=== PATIENT | female | born 1970 ===

== ENCOUNTER 2016-07-26 15:54 | Emergency (ER) | payer MEDICAID ==
[2016-07-26 16:04] VITALS: BMI 38.4
[2016-07-26 16:27] VITALS: BP 125/83; PULSE 89; RESP 20; TEMP 98.1; O2SAT 96
--- NOTE | 2016-07-26 16:27 | C.PDOC ---
History Of Present Illness 45 year old female presents to the ED with with complaints of pain to the right arm beginning just above the right elbow and radiating to the hand that began yesterday. Patient states she was cleaning all day yesterday preparing for a Father's Day celebration and denies any trauma or other complaints at this time. Time Seen by Provider: 07/26/16 16:08 Chief Complaint (Nursing): Upper Extremity Problem/Injury History Per: Patient History/Exam Limitations: no limitations Onset/Duration Of Symptoms: Hrs Current Symptoms Are (Timing): Still Present Quality: "Pain" Severity: Severe Pain Scale Rating Of: 10 Recent travel outside of the [place]: No Past Medical History Reviewed: Historical Data, Nursing Documentation, Vital Signs Vital Signs: Last Vital Signs Temp 98.1 F 07/26/16 16:12 Pulse 89 07/26/16 16:12 Resp 20 07/26/16 16:12 BP 125/83 07/26/16 16:12 Pulse Ox 96 07/26/16 16:27 Surgical History: Cholecystectomy Family History: States: Unknown Family Hx - Social History Hx Alcohol Use: No Hx Substance Use: No - Immunization History Hx Tetanus Toxoid Vaccination: No Hx Influenza Vaccination: Yes Hx Pneumococcal Vaccination: Yes Review Of Systems Constitutional: Negative for: Fever, Chills, Sweats Cardiovascular: Negative for: Chest Pain, Palpitations Respiratory: Negative for: Cough, Shortness of Breath Gastrointestinal: Negative for: Nausea, Vomiting, Abdominal Pain, Diarrhea Musculoskeletal: Positive for: Arm Pain (right arm pain beginning just above the elbow radiating to the fingers ) Physical Exam - Physical Exam Appears: Non-toxic, No Acute Distress Skin: Warm, Dry Head: Atraumatic Neck: Supple Chest: Symmetrical, No Deformity Cardiovascular: Rhythm Regular Extremity: Normal ROM, Tenderness (tenderness above elbow joint and associated warmth from elbow to fingers ), Swelling (swelling from elbow to fingers ) Neurological/Psych: Oriented x3 ED Course And Treatment O2 Sat by Pulse Oximetry: 96 Disposition Counseled Patient/Family Regarding: Diagnosis, Need For Followup, Rx Given - Disposition Disposition: HOME/ ROUTINE Disposition Time: 16:26 Condition: STABLE Prescriptions: Ibuprofen [Motrin] 600 mg PO TID #15 tab Instructions: RICE Therapy (ED) Forms: Gen Discharge Inst Lao, Work Excuse - POA Present On Arrival: None - Clinical Impression Clinical Impression: Sprain - Scribe Statement The provider has reviewed the documentation as recorded by the Scribe Fanta Stout All medical record entries made by the Areliibe were at my direction and personally dictated by me. I have reviewed the chart and agree that the record accurately reflects my personal performance of the history, physical exam, medical decision making, and the department course for this patient. I have also personally directed, reviewed, and agree with the discharge instructions and disposition.
--- NOTE | 2016-07-28 07:55 | CARD ---
APPROVED REPORT EKG Measurement Heart [id number] <Conclusion> Normal sinus rhythm Cannot rule out Anterior infarct, age undetermined Abnormal ECG
== END 2016-07-26 16:41 | disposition home or self-care (01) ==
LOC: C.ER 15:54
DX: S53.401A Unspecified sprain of right elbow, initial encounter (principal); X58.XXXA Exposure to other specified factors, initial encounter; Y93.E9 Activity, other interior property and clothing maintenance; Y92.008 Other place in unspecified non-institutional (private) residence as the place of occurrence of the external cause